=== PATIENT | male | born 1955 | race Caucasian/White ===

== ENCOUNTER 2017-08-03 09:06 | Day surgery (SDC) | payer SELFPAY ==
[~2017-08-03] VITALS: Ht 185.4 cm; Wt 115.9 kg
[~2017-08-03 09:06] MED LIST: ACET325T14 PO; ASPI-515 PO; ATOR20TA PO; CLOP75TA52 PO; LISI-167 PO
[2017-08-03 09:23] VITALS: BP 125/86
[2017-08-03] MEDS ORDERED: LIDOCAINE 2%, 20ML ONE (10:18)
== END 2017-08-03 10:15 | disposition home or self-care (01) ==
LOC: CACL 09:06
PROVIDERS: ATTEND Internal Medicine Cardiovascular Disease
DX: Z45.09 Encounter for adjustment and management of other cardiac device (principal); E11.9 Type 2 diabetes mellitus without complications; I10 Essential (primary) hypertension; E78.5 Hyperlipidemia, unspecified; G47.30 Sleep apnea, unspecified; Z86.73 Personal history of transient ischemic attack (TIA), and cerebral infarction without residual deficits; Z79.82 Long term (current) use of aspirin
CPT/HCPCS: 33284; C1764; J3490

== ENCOUNTER 2018-01-03 12:57 | Emergency (ER) | payer SELFPAY ==
[~2018-01-03] VITALS: Ht 185.4 cm; Wt 114.8 kg
[2018-01-03 13:03] VITALS: BP 154/90
[2018-01-03] MEDS ORDERED: LIDOCAINE-MPF 1%, 2ML ONE (13:50)
[2018-01-03] MEDS ORDERED: DIPH,PERTUSS(ACELL),TET VAC/PF 0.5 ML IM-VACC ONE ×3 (13:50→14:31)
[2018-01-03] MEDS ORDERED: LIDOCAINE-MPF 1%, 5ML INFIL ONE (14:00)
[2018-01-03] MEDS ORDERED: BACITRACIN ZINC OINT 500U/GM, 0.9 GM ONE (15:05)
== END 2018-01-03 15:16 | disposition home or self-care (01) ==
LOC: ED 15:10
DX: S01.81XA Laceration without foreign body of other part of head, initial encounter (principal); I10 Essential (primary) hypertension; E78.00 Pure hypercholesterolemia, unspecified; Z86.73 Personal history of transient ischemic attack (TIA), and cerebral infarction without residual deficits; W20.8XXA Other cause of strike by thrown, projected or falling object, initial encounter; Y93.89 Activity, other specified; Y92.098 Other place in other non-institutional residence as the place of occurrence of the external cause; Y99.8 Other external cause status
CPT/HCPCS: 12052; 70450; 90715; 96372; 99284

== ENCOUNTER 2021-02-14 04:50 | Inpatient (IN) | payer SELFPAY ==
[~2021-02-14] VITALS: Ht 185.4 cm; Wt 116.9 kg
[~2021-02-14 04:50] MED LIST changes: -ASPI-515 PO; +ASPI-963 PO
[2021-02-14] MEDS ORDERED: SODIUM CHLORIDE FLUSH 10ML SYR IVF ONE (05:30)
--- NOTE | 2021-02-14 05:32 | NUR ---
Pt arrived with c/o nausea, vomitting, generalized abdominal pain, and no BM since Monday. Today pt reports projectile vomitting. Pt ambulatory to room, connected to BP and O2 monitors, and changed into gown. HR is tachy and provider is aware, all other VSS. NADN.
--- NOTE | 2021-02-14 05:35 | NUR ---
pt to xray
[2021-02-14 05:59] LABS: MEAN CORPUSCULAR HEMOGLOBIN 31.1 pg (27.5-34.5); MEAN CORPUSCULAR HGB CONC 34.5 g/dL (33.2-36.2); MEAN PLATELET VOLUME 9.4 fL (7.4-10.4); PLATELET COUNT 209 x10^3/uL (130-400); RED BLOOD COUNT 5.31 x10^6/uL (4.38-5.82); RED CELL DISTRIBUTION WIDTH 13.4 % (9.4-14.8)
[2021-02-14] MEDS ORDERED: SODIUM CHLORIDE 0.9% 1,000ML IVBOLUS ONE ×2 (06:00→08:00)
[2021-02-14 06:11] LABS: ALANINE AMINOTRANSFERASE 22 U/L (12-78); ALBUMIN 2.6 g/dL (3.4-5.0); ANION GAP 14 mmol/L (5-15); CALCIUM 8.6 mg/dL (8.5-10.1); CHLORIDE 102 mmol/L (98-107); CREATININE 1.74 mg/dL (0.7-1.3)
[2021-02-14 06:13] LABS: ALKALINE PHOSPHATASE 109 U/L (45-117); TOTAL PROTEIN 7.4 g/dL (6.4-8.2)
[2021-02-14 06:30] LABS: <PLATELET ESTIMATE> ADEQUATE; <PLT MORPHOLOGY> NORMAL PLT MORPH; <RBC MORPHOLOGY> NORMAL; BAND#(MANUAL) 1.11 x10^3/uL; BANDS%(MANUAL) 5 % (0-7); LYMPH#(MANUAL) 1.55 x10^3/uL (1-3.4); LYMPHS% (MANUAL) 7 % (22-44); MONOS#(MANUAL) 0.88 x10^3/uL (0.3-2.7); MONOS% (MANUAL) 4 % (2-9); SEG#(MANUAL) 18.56 x10^3/uL (1.8-6.8); SEGS% (MANUAL) 84 % (42-75)
--- NOTE | 2021-02-14 06:39 | NUR ---
report to [facility] ENGLISH
--- NOTE | 2021-02-14 06:42 | NUR ---
TOOK REPORT FROM ANITA Dial RN, ASSUME CARE AT THIS TIME.
[2021-02-14] MEDS ORDERED: OMNIPAQUE 350 MG/ML, 100ML BOTTLE ONE (06:46)
[2021-02-14 07:09] LABS: FIO2 RA %; PH, VENOUS 7.388 pH (7.320-7.420)
[2021-02-14 07:23] LABS: ACETONE, SERUM Small (20mg/dL) (Negative)
[2021-02-14] MEDS ORDERED: METRONIDAZOLE PMX 500MG/100ML 100 ML ONE (07:27)
[2021-02-14] MEDS ORDERED: MIDAZOLAM 1 MG/ML, 2ML ONE (07:27)
[2021-02-14] MEDS ORDERED: MIDAZOLAM 1 MG/ML, 2ML IVPush ONE (07:30)
[2021-02-14] MEDS ORDERED: AMPICILLIN/SULBACTAM 3 GM in SODIUM CHLORIDE 0.9% 100 ML IV ONE (07:30)
[2021-02-14] MEDS ORDERED: METRONIDAZOLE PMX 500MG/100ML 100 ML IV ONE (07:30)
[2021-02-14] MEDS ORDERED: SODIUM CHLORIDE 0.9% 1,000 ML IV ONE (07:30)
--- NOTE | 2021-02-14 07:54 | NUR ---
20 g iv started in left Ac, 16 f ng put in left nare with 200 ml out.
[2021-02-14] MEDS ORDERED: HEPARIN 25,000 UNITS/250ML PMX 250 ML ONE (07:57)
[2021-02-14] MEDS ORDERED: HEPARIN 5,000 UNITS/ML, 1ML ONE ×2 (07:57→08:11)
[2021-02-14] MEDS ORDERED: HEPARIN 25,000 UNITS/250ML PMX 250 ML IV PRN (08:00)
[2021-02-14] MEDS ORDERED: HEPARIN 5,000 UNITS/ML, 1ML IV PRN ×2 (08:00)
[2021-02-14] MEDS ORDERED: HEPARIN 5,000 UNITS/ML, 1ML IV ONE ×2 (08:00)
[2021-02-14] MEDS: HEPARIN 25,000 UNITS/250ML PMX 250 ML IV PRN ×2 (08:14→17:21)
[2021-02-14] MEDS ORDERED: ROSU5TAB PO (08:25)
[2021-02-14] MEDS ORDERED: METF500T17 PO (08:25)
--- NOTE | 2021-02-14 08:27 | NUR ---
PT CALM IN BED IN GOWN WITH [employer], SPO2, BPQ 30 MIN, 16F NG IN LEFT NARE, ON INTERMITTENT LOW SUCTION 300 ML OUT. SIDE RAILS UP X2, CALL LIGHT IN REACH. PT REPORTS FEELING RELAXED AFTER MEDICATION. PAIN 0/10. NAD. COVID SWAB WALKED TO LAB.
[2021-02-14] MEDS ORDERED: BACLOFEN 10 MG TABLET PO PRN (08:30)
[2021-02-14] MEDS ORDERED: ONDANSETRON ODT 4 MG PO PRN (08:30)
[2021-02-14] MEDS ORDERED: ENALAPRILAT 1.25 MG/ML, 2ML IVPush PRN (08:30)
[2021-02-14] MEDS ORDERED: ONDANSETRON 2MG/ML, 2ML IVPush PRN ×2 (08:30→10:30)
[2021-02-14] MEDS ORDERED: ACETAMINOPHEN 325 MG TABLET PO PRN ×2 (08:30→10:30)
[2021-02-14] MEDS ORDERED: BUTALB/APAP/CAFFEINE 50MG/325MG/40MG PO PRN ×2 (08:30)
[2021-02-14] MEDS ORDERED: GUAIFENESIN/DM 200-20MG, 10ML UDC PO PRN (08:30)
--- NOTE | 2021-02-14 09:39 | NUR ---
MD Adarsh harris's heprin turned off. Meds stopped at this time.
[2021-02-14 09:44] VITALS: BP 153/91
[2021-02-14] MEDS ORDERED: hydrALAzine 20 MG/ML, 1ML IV PRN (10:30)
[2021-02-14] MEDS ORDERED: OXYcodone 5 MG/5 ML ORAL.SOL UDC PO PRN (10:30)
[2021-02-14] MEDS ORDERED: PROMETHAZINE 25 MG/ML, 1ML IVPush PRN (10:30)
[2021-02-14] MEDS ORDERED: LABETALOL 5MG/ML, 20ML IV PRN (10:30)
[2021-02-14] MEDS ORDERED: METHOCARBAMOL 1,000 MG in DEXTROSE 5% 100 ML IV PRN (10:30)
[2021-02-14] MEDS ORDERED: LORazepam 2 MG/ML, 1ML IVPush PRN (10:30)
[2021-02-14] MEDS ORDERED: FENTANYL PF 100 MCG/2ML IV PRN (10:30)
[2021-02-14] MEDS ORDERED: MEPERIDINE/PF 25MG/0.5ML IVPush PRN (10:30)
[2021-02-14] MEDS ORDERED: FENTANYL PF 250 MCG/5ML ONE ×3 (11:25→11:58)
[2021-02-14] MEDS ORDERED: HYDROmorphone 2 MG/ML, 1ML ONE (12:12)
[2021-02-14] MEDS: HYDROmorphone 1 MG/ML, 1ML INJ IVPush PRN ×3 (12:14→12:28)
[2021-02-14] MEDS: SENNA/DOCUSATE TABLET PO SCH (13:27)
[2021-02-14 14:10] VITALS: BP 146/96
[2021-02-14] MEDS: PIPERACILLIN/TAZO 3.375 GM in DEXTROSE 5% 50 ML IVPB SCH ×2 (15:48→22:00)
[2021-02-14] MEDS: INSULIN LISPRO 100 UNITS/ML, PEN SQ-INSULIN SCH ×2 (15:56→21:00)
[2021-02-14] MEDS: D5%-0.45NACL+KCL 20MEQ 1,000 ML IV SCH (18:01)
[2021-02-14 19:50] VITALS: BP 151/97
[2021-02-14] MEDS: MELATONIN 5 MG TABLET PO SCH (21:00)
[2021-02-14] MEDS: HYDROmorphone 2 MG/ML, 1ML IVPush PRN (21:28)
[2021-02-15 02:00] VITALS: BP 155/92
[2021-02-15] MEDS: D5%-0.45NACL+KCL 20MEQ 1,000 ML IV SCH ×2 (02:00→19:00)
[2021-02-15] MEDS: PIPERACILLIN/TAZO 3.375 GM in DEXTROSE 5% 50 ML IVPB SCH ×3 (06:00→22:00)
[2021-02-15 06:33] LABS: BASOPHILS % (AUTO) 1 % (0-1); EOSINOPHILS % (AUTO) 0 % (1-7); LYMPHOCYTES % (AUTO) 12 % (22-44); MEAN CORPUSCULAR HEMOGLOBIN 30.7 pg (27.5-34.5); MEAN CORPUSCULAR HGB CONC 33.8 g/dL (33.2-36.2); MEAN PLATELET VOLUME 8.7 fL (7.4-10.4); MONOCYTES % (AUTO) 10 % (2-9); NEUTROPHILS % (AUTO) 77 % (42-75); PLATELET COUNT 176 x10^3/uL (130-400); RED BLOOD COUNT 4.26 x10^6/uL (4.38-5.82); RED CELL DISTRIBUTION WIDTH 13.3 % (9.4-14.8)
[2021-02-15 06:38] LABS: ALANINE AMINOTRANSFERASE 16 U/L (12-78); CALCIUM 7.9 mg/dL (8.5-10.1); CREATININE 1.08 mg/dL (0.7-1.3)
[2021-02-15 06:40] LABS: ALKALINE PHOSPHATASE 78 U/L (45-117); BILIRUBIN,TOTAL 0.4 mg/dL (0.2-1.0); TOTAL PROTEIN 5.7 g/dL (6.4-8.2)
[2021-02-15 07:29] LABS: ANION GAP 7 mmol/L (5-15); CHLORIDE 109 mmol/L (98-107)
[2021-02-15] MEDS ORDERED: POTASSIUM PHOSPHATE 44 MEQ in SODIUM CHLORIDE 0.9% 500 ML IV ONE (08:30)
[2021-02-15] MEDS: SENNA/DOCUSATE TABLET PO SCH ×2 (08:42→12:14)
[2021-02-15 09:04] VITALS: BP 158/96
[2021-02-15] MEDS: INSULIN LISPRO 100 UNITS/ML, PEN SQ-INSULIN SCH ×4 (09:08→21:00)
[2021-02-15] MEDS: HEPARIN 25,000 UNITS/250ML PMX 250 ML IV PRN (09:21)
[2021-02-15 12:16] VITALS: BP 146/92
[2021-02-15] MEDS ORDERED: VANCOMYCIN PER PHARMACY MC PRN (19:00)
[2021-02-15] MEDS ORDERED: PHARMACOKINETIC MONITORING MC PRN (19:30)
[2021-02-15] MEDS ORDERED: VANCOMYCIN 2,500 MG in SODIUM CHLORIDE 0.9% 500 ML IV ONE (19:30)
[2021-02-15] MEDS ORDERED: PHARMACOKINETIC CONSULTATION MC ONE (19:30)
[2021-02-15] MEDS: MELATONIN 5 MG TABLET PO SCH (21:00)
[2021-02-15 21:55] VITALS: BP 150/84
[2021-02-16] MEDS: D5%-0.45NACL+KCL 20MEQ 1,000 ML IV SCH ×2 (01:00→12:08)
[2021-02-16] MEDS: HEPARIN 25,000 UNITS/250ML PMX 250 ML IV PRN ×2 (01:10→12:33)
[2021-02-16 02:00] VITALS: BP 152/86
[2021-02-16 04:49] LABS: BASOPHILS % (AUTO) 0 % (0-1); EOSINOPHILS % (AUTO) 0 % (1-7); LYMPHOCYTES % (AUTO) 14 % (22-44); MEAN CORPUSCULAR HEMOGLOBIN 30.8 pg (27.5-34.5); MEAN CORPUSCULAR HGB CONC 34.1 g/dL (33.2-36.2); MEAN PLATELET VOLUME 8.9 fL (7.4-10.4); MONOCYTES % (AUTO) 9 % (2-9); NEUTROPHILS % (AUTO) 77 % (42-75); PLATELET COUNT 180 x10^3/uL (130-400); RED BLOOD COUNT 4.23 x10^6/uL (4.38-5.82); RED CELL DISTRIBUTION WIDTH 13.3 % (9.4-14.8)
[2021-02-16 05:00] LABS: ALBUMIN 1.9 g/dL (3.4-5.0); ANION GAP 6 mmol/L (5-15); CALCIUM 7.5 mg/dL (8.5-10.1); CHLORIDE 108 mmol/L (98-107); CREATININE 0.96 mg/dL (0.7-1.3)
[2021-02-16] MEDS: SENNA/DOCUSATE TABLET PO SCH (09:36)
[2021-02-16] MEDS: INSULIN LISPRO 100 UNITS/ML, PEN SQ-INSULIN SCH ×4 (09:37→21:46)
[2021-02-16 10:57] VITALS: BP 139/90
[2021-02-16] MEDS ORDERED: VANCOMYCIN 1,900 MG in SODIUM CHLORIDE 0.9% 250 ML IV SCH (14:00)
[2021-02-16 14:11] VITALS: BP 140/91
[2021-02-16] MEDS: PIPERACILLIN/TAZO 3.375 GM in DEXTROSE 5% 50 ML IVPB SCH ×3 (14:15→21:47)
[2021-02-16 20:11] VITALS: BP 154/93
[2021-02-16] MEDS: MELATONIN 5 MG TABLET PO SCH (21:47)
[2021-02-17 02:04] VITALS: BP 151/93
[2021-02-17] MEDS: D5%-0.45NACL+KCL 20MEQ 1,000 ML IV SCH (02:04)
[2021-02-17] MEDS: HEPARIN 25,000 UNITS/250ML PMX 250 ML IV PRN ×2 (02:25→14:57)
[2021-02-17 05:08] LABS: BASOPHILS % (AUTO) 1 % (0-1); EOSINOPHILS % (AUTO) 2 % (1-7); LYMPHOCYTES % (AUTO) 16 % (22-44); MEAN CORPUSCULAR HEMOGLOBIN 30.5 pg (27.5-34.5); MEAN CORPUSCULAR HGB CONC 33.9 g/dL (33.2-36.2); MEAN PLATELET VOLUME 8.8 fL (7.4-10.4); MONOCYTES % (AUTO) 8 % (2-9); NEUTROPHILS % (AUTO) 73 % (42-75); PLATELET COUNT 231 x10^3/uL (130-400); RED BLOOD COUNT 4.58 x10^6/uL (4.38-5.82); RED CELL DISTRIBUTION WIDTH 13.3 % (9.4-14.8)
[2021-02-17 05:19] LABS: ALBUMIN 2.1 g/dL (3.4-5.0); ANION GAP 7 mmol/L (5-15); CALCIUM 7.9 mg/dL (8.5-10.1); CHLORIDE 106 mmol/L (98-107)
[2021-02-17 05:24] LABS: ALANINE AMINOTRANSFERASE 27 U/L (12-78); ALKALINE PHOSPHATASE 79 U/L (45-117); BILIRUBIN,TOTAL 0.5 mg/dL (0.2-1.0); CREATININE 1.01 mg/dL (0.7-1.3); TOTAL PROTEIN 6.5 g/dL (6.4-8.2)
[2021-02-17] MEDS: PIPERACILLIN/TAZO 3.375 GM in DEXTROSE 5% 50 ML IVPB SCH ×3 (05:49→22:05)
[2021-02-17 07:42] VITALS: BP 177/128
[2021-02-17 07:43] VITALS: BP 180/121
[2021-02-17] MEDS: hydrALAzine 20 MG/ML, 1ML IVPush PRN (07:50)
[2021-02-17] MEDS: POTASSIUM CHLORIDE 20 MEQ TAB.ER.PRT PO ONE ×2 (08:00→10:22)
[2021-02-17] MEDS: SENNA/DOCUSATE TABLET PO SCH (10:22)
[2021-02-17] MEDS: INSULIN LISPRO 100 UNITS/ML, PEN SQ-INSULIN SCH ×4 (10:23→22:05)
[2021-02-17 11:22] VITALS: BP 156/107
[2021-02-17 12:59] VITALS: BP 156/108
[2021-02-17] MEDS ORDERED: ONDANSETRON 2MG/ML, 2ML IVPush ONE (13:00)
[2021-02-17] MEDS: HYDROmorphone 2 MG/ML, 1ML IVPush PRN ×2 (17:44→22:03)
[2021-02-17 19:40] VITALS: BP 128/88
[2021-02-17] MEDS: POTASSIUM CHLORIDE 20 MEQ in SODIUM CHLORIDE 0.45% 1,000 ML IV SCH (20:57)
[2021-02-17] MEDS: MELATONIN 5 MG TABLET PO SCH (22:04)
[2021-02-18 00:25] VITALS: BP 136/85
[2021-02-18] MEDS: HEPARIN 25,000 UNITS/250ML PMX 250 ML IV PRN ×2 (02:36→15:00)
[2021-02-18] MEDS: PIPERACILLIN/TAZO 3.375 GM in DEXTROSE 5% 50 ML IVPB SCH ×3 (05:55→21:59)
[2021-02-18] MEDS: POTASSIUM CHLORIDE 20 MEQ in SODIUM CHLORIDE 0.45% 1,000 ML IV SCH ×2 (05:55→21:59)
[2021-02-18 06:25] LABS: CHLORIDE 106 mmol/L (98-107)
[2021-02-18 06:34] LABS: ANION GAP 8 mmol/L (5-15); CALCIUM 7.9 mg/dL (8.5-10.1); CREATININE 0.96 mg/dL (0.7-1.3)
[2021-02-18] MEDS ORDERED: POTASSIUM CHLORIDE 40 MEQ in SODIUM CHLORIDE 0.9% 500 ML IV ONE (07:00)
[2021-02-18 07:28] VITALS: BP 137/87
[2021-02-18] MEDS: INSULIN LISPRO 100 UNITS/ML, PEN SQ-INSULIN SCH ×3 (07:54→20:00)
[2021-02-18] MEDS: HYDROmorphone 2 MG/ML, 1ML IVPush PRN ×2 (07:54→20:16)
[2021-02-18] MEDS: SENNA/DOCUSATE TABLET PO SCH (13:19)
[2021-02-18 15:33] VITALS: BP 129/83
[2021-02-18 21:09] VITALS: BP 138/87
[2021-02-18] MEDS: MELATONIN 5 MG TABLET PO SCH (22:00)
[2021-02-19 01:40] VITALS: BP 135/80
[2021-02-19] MEDS: HEPARIN 25,000 UNITS/250ML PMX 250 ML IV PRN ×2 (02:13→14:39)
[2021-02-19] MEDS: INSULIN LISPRO 100 UNITS/ML, PEN SQ-INSULIN SCH ×4 (02:14→21:05)
[2021-02-19 05:13] LABS: BASOPHILS % (AUTO) 1 % (0-1); EOSINOPHILS % (AUTO) 3 % (1-7); LYMPHOCYTES % (AUTO) 23 % (22-44); MEAN CORPUSCULAR HEMOGLOBIN 30.6 pg (27.5-34.5); MEAN CORPUSCULAR HGB CONC 34.2 g/dL (33.2-36.2); MONOCYTES % (AUTO) 9 % (2-9); NEUTROPHILS % (AUTO) 64 % (42-75); PLATELET COUNT 260 x10^3/uL (130-400); RED CELL DISTRIBUTION WIDTH 13.3 % (9.4-14.8)
[2021-02-19 05:23] LABS: ANION GAP 7 mmol/L (5-15); CALCIUM 8.2 mg/dL (8.5-10.1); CHLORIDE 106 mmol/L (98-107)
[2021-02-19 05:27] LABS: CREATININE 0.99 mg/dL (0.7-1.3)
[2021-02-19] MEDS: POTASSIUM CHLORIDE 20 MEQ in SODIUM CHLORIDE 0.45% 1,000 ML IV SCH ×2 (06:10→19:38)
[2021-02-19] MEDS: PIPERACILLIN/TAZO 3.375 GM in DEXTROSE 5% 50 ML IVPB SCH ×2 (06:10→14:21)
[2021-02-19] MEDS ORDERED: POTASSIUM CHLORIDE 40 MEQ in SODIUM CHLORIDE 0.9% 500 ML IV ONE (07:00)
[2021-02-19 07:11] VITALS: BP 158/95
[2021-02-19] MEDS: SENNA/DOCUSATE TABLET PO SCH (08:25)
[2021-02-19 12:37] VITALS: BP 162/91
[2021-02-19] MEDS ORDERED: INSULIN GLARGINE 100 UNITS/ML, PEN SQ-INSULIN SCH (15:00)
[2021-02-19 16:01] LABS: INTERNATIONAL NORMALIZED RATIO 1.31 (0.93-1.1); PROTHROMBIN TIME 13.8 Seconds (9.6-11.5)
[2021-02-19] MEDS ORDERED: WARFARIN 5 MG TABLET PO-COUM ONE (18:30)
[2021-02-19 19:48] VITALS: BP 167/89
[2021-02-19] MEDS: INSULIN GLARGINE 100 UNITS/ML, PEN SQ-INSULIN SCH (21:04)
[2021-02-19] MEDS: HYDROmorphone 2 MG/ML, 1ML IVPush PRN (21:04)
[2021-02-19] MEDS: MELATONIN 5 MG TABLET PO SCH (21:05)
[2021-02-19 21:56] VITALS: BP 147/84
[2021-02-20 01:12] VITALS: BP 128/78
[2021-02-20] MEDS: INSULIN LISPRO 100 UNITS/ML, PEN SQ-INSULIN SCH ×4 (02:48→20:52)
[2021-02-20] MEDS: HEPARIN 25,000 UNITS/250ML PMX 250 ML IV PRN ×2 (02:53→15:44)
[2021-02-20] MEDS: POTASSIUM CHLORIDE 20 MEQ in SODIUM CHLORIDE 0.45% 1,000 ML IV SCH ×3 (04:04→20:53)
[2021-02-20 07:30] VITALS: BP 137/80
[2021-02-20 07:59] LABS: ANION GAP 6 mmol/L (5-15); CALCIUM 7.8 mg/dL (8.5-10.1); CHLORIDE 112 mmol/L (98-107); CREATININE 0.84 mg/dL (0.7-1.3)
[2021-02-20] MEDS: SENNA/DOCUSATE TABLET PO SCH (09:00)
[2021-02-20] MEDS ORDERED: POTASSIUM CHLORIDE 20 MEQ TAB.ER.PRT PO ONE (10:00)
[2021-02-20 14:00] VITALS: BP 142/84
[2021-02-20 15:01] LABS: INTERNATIONAL NORMALIZED RATIO 1.2 (0.93-1.1); PROTHROMBIN TIME 12.7 Seconds (9.6-11.5)
[2021-02-20] MEDS: CALCIUM CARBONATE 500 MG TAB.CHEW PO PRN (16:13)
[2021-02-20] MEDS ORDERED: WARFARIN 7.5 MG TABLET PO-COUM ONE (18:00)
[2021-02-20] MEDS: INSULIN GLARGINE 100 UNITS/ML, PEN SQ-INSULIN SCH (20:52)
[2021-02-20] MEDS: MELATONIN 5 MG TABLET PO SCH (20:52)
[2021-02-20 21:10] VITALS: BP 160/97
[2021-02-21] MEDS: CALCIUM CARBONATE 500 MG TAB.CHEW PO PRN ×3 (00:42→21:37)
[2021-02-21 01:21] VITALS: BP 160/94
[2021-02-21] MEDS: HEPARIN 25,000 UNITS/250ML PMX 250 ML IV PRN ×2 (02:55→15:12)
[2021-02-21] MEDS: INSULIN LISPRO 100 UNITS/ML, PEN SQ-INSULIN SCH ×4 (02:56→20:10)
[2021-02-21] MEDS: POTASSIUM CHLORIDE 20 MEQ in SODIUM CHLORIDE 0.45% 1,000 ML IV SCH ×2 (05:37→14:09)
[2021-02-21 06:06] LABS: INTERNATIONAL NORMALIZED RATIO 1.27 (0.93-1.1); PROTHROMBIN TIME 13.4 Seconds (9.6-11.5)
[2021-02-21 06:10] LABS: ANION GAP 0 mmol/L (5-15); CALCIUM 8.1 mg/dL (8.5-10.1); CHLORIDE 116 mmol/L (98-107); CREATININE 0.85 mg/dL (0.7-1.3)
[2021-02-21] MEDS ORDERED: POTASSIUM CHLORIDE 20 MEQ TAB.ER.PRT PO ONE (07:00)
[2021-02-21 07:23] VITALS: BP 155/96
[2021-02-21] MEDS: SENNA/DOCUSATE TABLET PO SCH (08:26)
[2021-02-21 12:01] VITALS: BP 168/101
[2021-02-21] MEDS ORDERED: INSULIN GLARGINE 100 UNITS/ML, PEN SQ-INSULIN SCH (14:00)
[2021-02-21] MEDS ORDERED: WARFARIN 5 MG TABLET PO-COUM ONE (18:00)
[2021-02-21] MEDS: MELATONIN 5 MG TABLET PO SCH (20:09)
[2021-02-21] MEDS: INSULIN GLARGINE 100 UNITS/ML, PEN SQ-INSULIN SCH (20:10)
[2021-02-21 20:28] VITALS: BP 171/98
[2021-02-21] MEDS: hydrALAzine 20 MG/ML, 1ML IVPush PRN (21:37)
[2021-02-22 01:03] VITALS: BP 157/95
[2021-02-22] MEDS: INSULIN LISPRO 100 UNITS/ML, PEN SQ-INSULIN SCH ×4 (02:00→20:04)
[2021-02-22] MEDS: POTASSIUM CHLORIDE 20 MEQ in SODIUM CHLORIDE 0.45% 1,000 ML IV SCH ×3 (02:57→20:03)
[2021-02-22] MEDS: HEPARIN 25,000 UNITS/250ML PMX 250 ML IV PRN ×2 (02:59→14:14)
[2021-02-22 06:44] LABS: ANION GAP 6 mmol/L (5-15); CALCIUM 8.5 mg/dL (8.5-10.1); CHLORIDE 113 mmol/L (98-107)
[2021-02-22 06:46] LABS: INTERNATIONAL NORMALIZED RATIO 1.57 (0.93-1.1); PROTHROMBIN TIME 16.4 Seconds (9.6-11.5)
[2021-02-22 06:54] LABS: CREATININE 0.81 mg/dL (0.7-1.3)
[2021-02-22 07:40] VITALS: BP 144/84
[2021-02-22] MEDS: SENNA/DOCUSATE TABLET PO SCH (09:00)
[2021-02-22 15:20] VITALS: BP 155/87
[2021-02-22] MEDS: CALCIUM CARBONATE 500 MG TAB.CHEW PO PRN (17:55)
[2021-02-22] MEDS ORDERED: WARFARIN 7.5 MG TABLET PO-COUM ONE (18:00)
[2021-02-22 19:48] VITALS: BP 158/95
[2021-02-22] MEDS: INSULIN GLARGINE 100 UNITS/ML, PEN SQ-INSULIN SCH (20:03)
[2021-02-22] MEDS: MELATONIN 5 MG TABLET PO SCH (20:03)
[2021-02-23 01:15] VITALS: BP 147/89
[2021-02-23] MEDS: INSULIN LISPRO 100 UNITS/ML, PEN SQ-INSULIN SCH ×4 (02:00→20:41)
[2021-02-23] MEDS: HEPARIN 25,000 UNITS/250ML PMX 250 ML IV PRN ×2 (02:20→15:20)
[2021-02-23] MEDS: POTASSIUM CHLORIDE 20 MEQ in SODIUM CHLORIDE 0.45% 1,000 ML IV SCH ×3 (04:16→22:25)
[2021-02-23 04:46] LABS: INTERNATIONAL NORMALIZED RATIO 1.55 (0.93-1.1); PROTHROMBIN TIME 16.2 Seconds (9.6-11.5)
[2021-02-23 08:33] VITALS: BP 159/102
[2021-02-23] MEDS: SENNA/DOCUSATE TABLET PO SCH (08:35)
[2021-02-23] MEDS: hydrALAzine 20 MG/ML, 1ML IVPush PRN (08:41)
[2021-02-23 10:46] VITALS: BP 148/90
[2021-02-23] MEDS: CALCIUM CARBONATE 500 MG TAB.CHEW PO PRN (14:24)
[2021-02-23 15:13] VITALS: BP 153/79
[2021-02-23] MEDS ORDERED: WARFARIN 7.5 MG TABLET PO-COUM ONE (18:00)
[2021-02-23 18:52] VITALS: BP 150/90
[2021-02-23] MEDS: MELATONIN 5 MG TABLET PO SCH (20:40)
[2021-02-23] MEDS: INSULIN GLARGINE 100 UNITS/ML, PEN SQ-INSULIN SCH (20:41)
[2021-02-24 01:33] VITALS: BP 138/77
[2021-02-24] MEDS: INSULIN LISPRO 100 UNITS/ML, PEN SQ-INSULIN SCH ×3 (02:00→15:52)
[2021-02-24] MEDS: HEPARIN 25,000 UNITS/250ML PMX 250 ML IV PRN (03:32)
[2021-02-24] MEDS: POTASSIUM CHLORIDE 20 MEQ in SODIUM CHLORIDE 0.45% 1,000 ML IV SCH ×2 (06:04→14:00)
[2021-02-24 06:41] LABS: INTERNATIONAL NORMALIZED RATIO 2.3 (0.93-1.1); PROTHROMBIN TIME 23.7 Seconds (9.6-11.5)
[2021-02-24 07:24] VITALS: BP 161/90
[2021-02-24] MEDS ORDERED: WARF-36 PO ×2 (08:41)
[2021-02-24] MEDS: SENNA/DOCUSATE TABLET PO SCH (09:00)
[2021-02-24 13:20] VITALS: BP 167/95
[2021-02-24] MEDS ORDERED: APIX5TAB PO (15:15)
[2021-02-24] MEDS ORDERED: WARFARIN 5 MG TABLET PO-COUM ONE (18:00)
== END 2021-02-24 16:01 | disposition home or self-care (01) | DRG 329 ==
LOC: ED 06:45 → EDIP 07:53 → 4WST 09:36
PROVIDERS: ADMIT Hospitalist; ATTEND Family Medicine
PROC: 0DT80ZZ Resection of Small Intestine, Open Approach (ICD-10-PCS; principal; 2021-02-14 10:00)
DX: K55.069 Acute infarction of intestine, part and extent unspecified (principal); I81 Portal vein thrombosis; E44.1 Mild protein-calorie malnutrition; E87.1 Hypo-osmolality and hyponatremia; E87.2 Acidosis; N17.9 Acute kidney failure, unspecified; D50.0 Iron deficiency anemia secondary to blood loss (chronic); E11.65 Type 2 diabetes mellitus with hyperglycemia; E66.9 Obesity, unspecified; Z68.34 Body mass index [BMI] 34.0-34.9, adult; E78.00 Pure hypercholesterolemia, unspecified; E78.5 Hyperlipidemia, unspecified; E86.0 Dehydration; E86.1 Hypovolemia; Z51.5 Encounter for palliative care; Z79.01 Long term (current) use of anticoagulants; Z86.73 Personal history of transient ischemic attack (TIA), and cerebral infarction without residual deficits; I10 Essential (primary) hypertension
CPT/HCPCS: 36415; 71045; 74018; 74021; 74177; 80048; 80053; 80069; 82010; 82803; 82962; 83605; 83690; 83735; 84100; 85014; 85018; 85025; 85520; 85610; 87040; 87077; 87635; 88307; 93005; 96360; 96361; G0378; J0295; J1170; J1644; J2250; J2405; J2543; J3010; J3370; J3480; Q0162; Q9967; J0360; J1815; J2800; J7030; J7040